=== PATIENT | female | born 1990 | race Caucasian/White ===

== ENCOUNTER 2016-06-23 12:21 | Emergency (ER) ==
[2016-06-23] MEDS ORDERED: PHENERGAN IV ONE (13:42)
[2016-06-23] MEDS ORDERED: NS 1,000 ML IV ONE (13:42)
[2016-06-23] MEDS ORDERED: SODIUM CHLORIDE 0.9% INJ ONE (13:42)
[2016-06-23] MEDS ORDERED: DILAUDID IV ONE (13:43)
[2016-06-23] MEDS ORDERED: REGLAN IV ONE (13:43)
--- NOTE | 2016-06-23 13:47 | PROVIDER DOCUMENTATION ---
HPI-General Adult - General Chief Complaint: N/V/D Stated Complaint: N/V/D Time Seen by Provider: 06/23/16 13:33 Source: patient Allergies/Adverse Reactions: Patient Allergies Allergy/AdvReac Type Severity Reaction Status Date / Time butorphanol tartrate * Allergy Mild HEADACHE Verified 08/21/15 19:00 [From Stadol] ketorolac tromethamine * Allergy Mild HEADACHE Verified 08/21/15 19:00 [From Toradol] cefadroxil hydrate * Allergy ANAPHYLAXIS Verified 08/21/15 19:00 [From Duricef] erythromycin base Allergy ANAPHYLAXIS Verified 08/21/15 19:00 [Erythromycin Base] Latex, Natural Rubber Allergy RASH Verified 08/21/15 19:00 morphine Allergy NAUSEA/VOMI Verified 08/21/15 19:00 TING ondansetron HCl * Allergy HEADACHE Verified 08/21/15 19:00 [From Zofran (as hydrochloride)] penicillin G Allergy ANAPHYLAXIS Verified 08/21/15 19:00 Penicillins Allergy ANAPHYLAXIS Verified 08/21/15 19:00 Sulfa (Sulfonamide Allergy ANAPHYLAXIS Verified 08/21/15 19:00 Antibiotics) [Sulfa(Sulfonamide Antibiotics)] beans, meyers AdvReac ANAPHYLAXIS Uncoded 06/16/15 19:13 Home Medications: Home Medication List Medication Instructions Recorded Confirmed Last Taken Type Methocarbamol [Robaxin-750] 750 mg PO BID 06/16/15 12/01/15 11/29/15 History Albuterol Sulfate [Albuterol 2 inhaler INH ORDERED 08/21/15 12/01/15 History Sulfate Hfa] Clonazepam [Klonopin] 1 mg PO BID 08/21/15 12/01/15 11/29/15 History Hydrocodone/Acetaminophen [[place]cher 1 each PO BID 08/21/15 12/01/15 11/29/15 History 7.5-325 Tablet] Methocarbamol [Robaxin] 500 mg PO BID #30 tablet 08/21/15 12/01/15 11/29/15 Rx Butalbital/APAP/Caffeine [Fioricet] 1 each PO TID #30 tablet 11/02/15 12/01/15 11/29/15 Rx Promethazine [Phenergan] 25 mg PO Q6H PRN PRN #20 tablet 11/02/15 Unknown Rx Duloxetine [Cymbalta] 60 mg PO DAILY #30 capsule 12/01/15 Unknown Rx Omeprazole [Prilosec] 20 mg PO DAILY #30 capsule 12/01/15 Unknown Rx Promethazine [Phenergan] 25 mg PO Q6H PRN PRN #20 tablet 12/01/15 Unknown Rx Cephalexin [Keflex] 500 mg PO BID #20 capsule 02/26/16 Unknown Rx D-Methorphan Hb/P-Epd HCl/Bpm 5 ml PO Q6H PRN PRN #1 syrup 02/26/16 Unknown Rx [Bromfed Dm Cough Syrup] - History of Present Illness -Gen Adult Nature of Presenting Problems: Pt is 26 y/o F presents to the ED with N/V/D. Pt states the symptoms started this am. Pt denies F Location of Pain/Injury: reports: none Pain Radiation: reports: no radiation Quality of Pain: reports: none Onset/Duration: reports: this morning Timing: reports: still present Context/Activities at Onset: reports: light activity Modifying Factors: improves with: nothing Associated Symptoms: reports: diarrhea, nausea, vomiting Similar Symptoms Previously?: Yes Recently seen or treated by another doctor?: No Review of Systems - Adult - REVIEW OF SYSTEMS - ADULT Constitutional: reports: no symptoms reported Eyes: reports: no symptoms reported Ears, Nose, Mouth & Throat: reports: no symptoms reported Cardiovascular: reports: no symptoms reported Respiratory: reports: no symptoms reported Gastrointestinal: reports: diarrhea, nausea, vomiting Genitourinary: reports: no symptoms reported Musculoskeletal: reports: no symptoms reported Integumentary: reports: no symptoms reported Neurological: reports: no symptoms reported Psychiatric: reports: no symptoms reported Endocrine: reports: no symptoms reported Hematologic/Lymphatic: reports: no symptoms reported Allergic/Immunologic: reports: no symptoms reported All Other Systems: Reviewed and Negative Past History - Adult - PAST MEDICAL HISTORY-ADULT Review of Records: reports: Nursing Assessment Review, Medications Reviewed, Social history reviewed & non-contributory. Major Childhood Illnesses: reports: denies history Cardiovascular: reports: denies history Respiratory: reports: asthma Gastrointestinal: reports: denies history Obstetrical/Gynecological: reports: denies history Genitourinary: reports: denies history Musculoskeletal: reports: denies history Neurological: reports: headaches/migraines Endocrine/Immune: reports: denies history Other Conditions: reports: denies history - PRIOR SURGERIES/PROCEDURES Surgical/Procedure History: reports: hysterectomy, BTL - PRIOR HOSPITALIZATIONS Prior Hospitalizations: reports: none - IMMUNIZATION STATUS Childhood Immunizations: See Nurse Assessment Flu Vaccine: See Nurse Assessment - FAMILY HISTORY Family History: reviewed, not pertinent - SOCIAL HISTORY Smoking: cigarettes, greater than 1 pack/day Provider spent 3-5 mins advising pt. on dangers of tobacco.: Discussed manners to quit use, and f/u contacts for add'l counseling. Substance Use: denies Living Situation: family Physical Exam-General - PHYSICAL EXAM-ADULT Initial Vital Signs Reviewed: Yes - CONSTITUTIONAL General Appearance: appears well, alert, no apparent distress - EYES Eyes: PERRL/EOMI, pink conjunctivae, fundi clear, no AV nicking - HEAD, EARS, NOSE, MOUTH & THROAT HENMT: normocephalic/atraumatic, normal ENT inspection, TMs normal, pharynx normal. negative: moist mucous membranes (dry) - NECK Neck: non-tender, full range of motion, supple, normal inspection - RESPIRATORY Respiratory: chest non-tender, lungs clear, normal breath sounds, no pleuratic chest pain, no respiratory distress, no accessory muscle use - CARDIOVASCULAR Cardiovascular: normal peripheral pulses, regular rate, rhythm, no edema, no gallop, no JVD, no murmur - GASTROINTESTINAL (ABDOMEN) Abdominal Exam: non tender, soft, no organomegaly, no pulsatile mass, abnormal bowel sounds (hyper active) - LYMPHATIC Lymphatic: no adenopathy - MUSCULOSKELETAL Back Exam: normal inspection, no CVA tenderness, no vertebral tenderness Extremity: normal range of motion, non-tender, normal gait, normal inspection, no pedal edema, no calf tenderness, normal capillary refill - SKIN Integumentary: normal color, normal turgor, warm/dry - NEUROLOGIC Neurologic: grossly normal - PSYCHIATRIC Psych/Mental Status: normal mood/affect, oriented x 3 Progress - PLAN OF CARE/RESULTS Progress/Plan/Lab Results: Orders Category Date Time Status CBC WITH ELECTRONIC DIFF [HEME] Stat Lab 06/23/16 13:39 Ordered CMP [COMPREHENSIVE METABOLIC PANEL] [CHEM] Stat Lab 06/23/16 13:[address] W/POSS RFLX CULT [URINALYSIS] Stat Lab 06/23/16 13:40 Uncollected 0.9% Sodium Chloride Inj [Ns] 1,000 ml Med 06/23/16 13:42 Active IV 999 mls/hr Hydromorphone [Dilaudid] Med 06/23/16 13:43 Discontinued 1 mg IV NOW ONE Metoclopramide [Reglan] Med 06/23/16 13:43 Discontinued 5 mg IV NOW ONE Promethazine [Phenergan] Med 06/23/16 13:42 Discontinued 12.5 mg IV NOW ONE Sodium Chloride 0.9% Med 06/23/16 13:42 Discontinued 10 ml INJ NOW ONE Vital Signs - 24 hr 06/23/16 12:37 Temperature 98 F Pulse Rate 82 Respiratory 18 Rate Blood Pressure 119/73 O2 Sat by Pulse 99 Oximetry Laboratory Tests 06/23/16 06/23/16 14:05 14:05 WBC 16.84 H RBC 5.06 Hgb 14.9 Hct 44.1 MCV 87.2 MCH 29.4 MCHC 33.8 RDW Std Deviation 13.3 Plt Count 408 H MPV 10.1 Immature Gran % (Auto) 0.2 Neut % (Auto) 83.9 H Lymph % (Auto) 11.6 L [place] % (Auto) 3.2 Eos % (Auto) 0.7 Baso % (Auto) 0.4 Immature Gran # (Auto) 0.03 Neut # (Auto) 14.13 H Lymph # (Auto) 1.95 [place] # (Auto) 0.54 Eos # (Auto) 0.12 Baso # (Auto) 0.07 Sodium 140 Potassium 3.7 Chloride 105 Carbon Dioxide 23 L Anion Gap 13 BUN 7 L Creatinine 0.6 Estimated GFR/1.73 m2 > 60 BUN/Creatinine Ratio 12 Glucose 117 H Calculated Osmolality 278 Calcium 9.5 Total Bilirubin 0.30 AST 11 ALT 6 L Alkaline Phosphatase 86 Total Protein 7.4 Albumin 4.5 Globulin 3.0 Albumin/Globulin Ratio 2.0 Departure - Departure Time of Disposition Order: 15:15 DIAGNOSIS: History of Crohn's disease, Gastroenteritis Disposition: HOME 01 Certified Medical Emergency: Emergent Condition: Stable Additional Instructions: ED Follow Up Instructions: You have been treated by a care provider in the Emergency Department. These instructions are being provided to you so you can have an understanding of how to care for yourself upon discharge. Upon discharge from the Emergency Department, you are responsible for making arrangements for follow-up care by a physician of your choice. Take all prescribed medications as directed. Return to the Emergency Department immediately for any new or worsening symptoms. You may call the Physician Referral phone number at [phone] to obtain a list of Physicians who are taking new patients. Referrals: Jimbo West MD [Primary Care Provider] - Attestation - Scribe Verification/Attestation Scribe:: Karol Dowell Acting as Scribe for:: Alannah Panchal Scribe documention review:: This chart was documented by a scribe and accurately reflects the service the provider performed and the decisions made by the provider.
[2016-06-23 14:09] LABS: MANUAL DIFF NEEDED? NO
[2016-06-23 14:20] LABS: BASO% 0.4 % (0.0-0.8); EOS# 0.12 X1000 (0.0-0.7); EOS% 0.7 % (0.0-10.0); HEMATOCRIT 44.1 % (37.0-47.0); HEMOGLOBIN 14.9 g/dL (12.0-16.0); IMM GRAN# 0.03 X1000 (0.0-0.04); IMM GRAN% 0.2 % (0.0-0.5); LYMPH# 1.95 X1000 (1.2-3.4); LYMPH% 11.6 % (20.5-51.1); MCH 29.4 PG (27-31); MCHC 33.8 g/dL (33-37); MCV 87.2 FL (81-99); MONO# 0.54 X1000 (0.11-0.59); MONO% 3.2 % (1.7-9.3); MPV 10.1 FL (7.4-10.4); NEUT% 83.9 % (42.2-75.2); PLT 408 X1000 (130-400); RBC 5.06 XMIL (4.2-5.4)
[2016-06-23 14:29] LABS: AGAP 13; ALBUMIN 4.5 g/dL (3.5-5.0); ALKALINE PHOSPHATASE 86 U/L (32-104); BUN 7 mg/dL (8-22); CALCIUM 9.5 mg/dL (8.8-10.2); CHLORIDE 105 mmol/L (98-107); COSMO 278; GOT 11 U/L (10-30); GPT 6 U/L (10-36); POTASSIUM 3.7 mmol/L (3.5-5.1); SODIUM 140 mmol/L (136-145); TCO2 23 mmol/L (25-35); TOTAL PROTEIN 7.4 g/dL (6.3-8.3)
[2016-06-23 16:14] VITALS: BP 110/71
== END 2016-06-23 16:10 | disposition home or self-care (01) ==
LOC: P.ED 12:21
DX: K52.9 Noninfective gastroenteritis and colitis, unspecified (principal); R11.2 Nausea with vomiting, unspecified; R19.7 Diarrhea, unspecified; R19.12 Hyperactive bowel sounds; J45.909 Unspecified asthma, uncomplicated; F17.210 Nicotine dependence, cigarettes, uncomplicated; Z79.899 Other long term (current) drug therapy; Z87.19 Personal history of other diseases of the digestive system; Z71.6 Tobacco abuse counseling
CPT/HCPCS: 80053; 85025; 96361; 96372; 96374; 96375; J1170; J2550; J2765; J7030